=== PATIENT | female | born 1995 | race Caucasian/White ===

== ENCOUNTER 2018-11-12 06:49 | Inpatient (IN) | payer OTHER ==
[2018-11-12] MEDS ORDERED: Magnesium Sulfate OB PREMIX* 40 GM/1,000 ML BAG ONE (06:50)
[2018-11-12] MEDS ORDERED: Lactated Ringers 1000 ML Bag* 1,000 ML IV ONE (07:09)
--- NOTE | 2018-11-12 07:22 | HP ---
General Information - Reason for Visit Patient presented to the emergency room this am, after waking up to upper abdominal pain, mostly RUQ. She denies fever, chills, nausea, vomiting, diarrhea, constipation, urinary s/sx. In the emergency room she was noted to have BP readings in 190-170"s/100's, no headaches, visual changes noted by the patient. - General Information Maternal Age: 23 Grav: 1 Para: 0 SAB: 0 IEA: 0 Estimated Due Date: 01/28/19 Determined By: 18 week ultrasound Gestational Age in Weeks/Days: 29 0/7 weeks Maternal Blood Type and Rh: O Positive - Results this Serology/RPR Result: Non-Reactive Rubella Result: Non-Immune HBsAg Result: Negative HIV Result: Negative Past Medical History Delivery History: See Records Pertinent Past Medical History: See Records Past Medical History Comment: Obesity BMI 39.9 Asthma Depression/Anxiety Pertinent Past Surgical History: None Pertinent Family History: See Records - Diabetes, HTN - Antepartal Records Antepartal Records: Reviewed, Complicated by: - Hypertension, THC use early Review of Systems Constitutional: Comfortable CV Complaint: No Respiratory: Shortness of Breath: No Gastrointestinal: No Nausea/Vomiting, Normal Bowel Movement Genitourinary: No Dysuria, No Bleeding, No Leaking Fluid Musculoskeletal: Abdominal Pain - See HPI Neurological: No Headache, No Visual Changes Movement: Normal Exam Allergies/Adverse Reactions: Allergies No Known Allergies Allergy (Unverified 01/14/14 14:50) Lab Values - Entire Visit: Emergency Room CBC with elevated WBC, Comprehensive metabolic panel, LFT's wnl , Urine analysis negative. - Measurements Height: 5 ft 6 in Weight: 261 lb Body Mass Index (BMI): 42.1 Pre- Weight: 249 lb - Exam Breast: Breast Exam Deferred CVA: No CVA Tenderness Extremities: No Edema Heart: Normal Rhythm/Heart Sounds HEENT: No Significant Findings Lungs: Clear Bilaterally Rectal: Rectal Exam Deferred Reflexes: DTR 2+ Thyroid: No Thyromegaly - Abdominal Exam Abdomen Exam Comment: Abdomen- soft, gravid, upper abdominal tenderness right and mid abdomen, normal bowel sounds. - Ultrasound/Biophysical Profile Ultrasound Status: Radiology Department Full Exam - Pending Targeted Exam Findings See L&D Outpatient Visit Provider Note for Findings: N/A Membrane Status: Intact Bleeding/Discharge: None EFM Findings - External Monitor Findings Baseline Heart Rate: 140 External Monitor Findings: Accelerations Present Contractions: None Assessment/Plan - Assessment 23 y/o lady at 29 weeks EGA with severe hypertension and abdominal pain. - Obstetrical Risk Factors Obstetrical Risk Factors: Obesity, Severe Gestational Hypertension Risk Factors Comment: prematurity - Plan Plan: Mag Sulfate - anti-hypertensive Rx , evaluation with ultrasound, assess for Chronic HTM vs Pre-eclampsia. UDS, 24 hr collection pending.
[2018-11-12] MEDS ORDERED: Magnesium Sulf 4 GM/100 ML IV* 4,000 MG/100 ML BAG IVPB ONE (08:45)
[2018-11-12 09:07] LABS: Urine Benzodiazepine Screen None Detected (None Detect); Urine Opiates Screen None Detected (None Detect)
[2018-11-12] MEDS: Labetalol TAB* 200 MG PO SCH ×2 (09:10→20:58)
[2018-11-12] MEDS ORDERED: Acetaminophen TAB* 325 MG PO PRN (20:06)
[2018-11-13 04:54] VITALS: BP 147/79
[2018-11-13 08:08] LABS: Urine TP Concentration 5 mg/dL
[2018-11-13] MEDS: Labetalol TAB* 200 MG PO SCH (08:49)
[2018-11-14] MEDS ORDERED: Aspirin 81 mg CHEW TAB* 81 MG TAB.CHEW PO SCH (09:00)
--- NOTE | 2018-11-17 22:22 | DS ---
CC: Dr. Bingham * DISCHARGE SUMMARY: DATE OF ADMISSION: 11/12/18 DATE OF DISCHARGE: 11/13/18 PRINCIPAL DIAGNOSIS: Chronic hypertension. HISTORY: This is a 23-year-old who presented to the emergency room with upper abdominal pain, mostly in right upper quadrant. Initially, her blood pressures in the ER were 190 to 170 over 100s. No headache or visual changes were noted by the patient. The patient was brought down to Labor and Delivery and evaluated, started on magnesium for prevention of seizures related to preeclampsia and a 24-hour urine was collected. Initially on admission, her review of systems was really noncontributory other than abdominal pain. Heart was regular rhythm. HEENT without any findings. Lungs were clear to auscultation. DTRs were 2+. Abdomen was soft. Upper abdominal tenderness in the right and mid abdomen. Had normal bowel sounds. Ultrasound done in the Radiology Department showed a 30-week without any particular findings of note. She was admitted, observed, started on magnesium sulfate, and her labs were all within normal limits. Her total protein after 24 hours was 200, and given that her abdominal pain had resolved, she was discharged to home with followup with Dr. Bingham. [id number]/[facility] #: [id number] [facility] CENTERMarcello
== END 2018-11-13 10:22 | disposition home or self-care (01) | DRG 566 ==
LOC: MCHOBOUT 06:49 → MCHOB 06:54
PROVIDERS: ADMIT Obstetrics & Gynecology; ATTEND Obstetrics & Gynecology
DX: O13.3 Gestational [pregnancy-induced] hypertension without significant proteinuria, third trimester (principal); O99.213 Obesity complicating pregnancy, third trimester; J45.909 Unspecified asthma, uncomplicated; O99.343 Other mental disorders complicating pregnancy, third trimester; F41.9 Anxiety disorder, unspecified; F32.9 Major depressive disorder, single episode, unspecified; Z3A.30 30 weeks gestation of pregnancy
CPT/HCPCS: 76805; 80307; 84156; A9270-GY

== ENCOUNTER 2018-12-01 23:05 | Inpatient (IN) | payer OTHER ==
[2018-12-02] MEDS: Lactated Ringers 1000 ML Bag* 1,000 ML IV SCH ×2 (00:15→06:51)
[2018-12-02] MEDS ORDERED: Betamethasone INJ* 6 MG/ML 5 ML VIAL (30 MG) IM ONE ×2 (00:34)
[2018-12-02 00:40] LABS: Hematocrit 29 % (35-47); Mean Corpuscular HGB Conc 34 g/dL (31-36); Mean Corpuscular Hemoglobin 29 pg (27-31); Mean Corpuscular Volume 86 fL (80-97); Mean Platelet Volume 8.6 fL (7.4-10.4); Platelet Count 99 10^3/uL (150-450); Red Blood Count 3.39 10^6 /uL (3.70-4.87); Red Cell Distribution Width 16 % (10.5-15); White Blood Count 17.3 10^3/uL (3.5-10.8)
[2018-12-02 00:53] LABS: Albumin 3.3 g/dL (3.2-5.2); BUN/Creatinine Ratio 21.6 (8-20); Calcium 9.5 mg/dL (8.6-10.3); EGFR African American 118.7 (>60); EGFR Non-African American 98.1 (>60); Globulin 3.2 g/dL (2-4); Potassium 4.1 mmol/L (3.5-5.0); Total Bilirubin 0.4 mg/dL (0.2-1.0); Total Protein 6.5 g/dL (6.4-8.9)
[2018-12-02 00:55] LABS: Urine Benzodiazepine Screen None Detected (None Detect); Urine Opiates Screen None Detected (None Detect)
[2018-12-02 01:04] LABS: ABS Basophils 0.1 10^3/ul (0-0.2); ABS Eosinophils 0.3 10^3/ul (0-0.6); ABS Lymphocytes 1.7 10^3/ul (1.0-4.8); ABS Monocytes 0.9 10^3/ul (0-0.8); ABS Neutrophils 14.3 10^3/ul (1.5-7.7); ABS Nucleated RBC 0.1 10^3/ul; Lymphocyte % 9.8 %; Nucleated Red Blood Cells % 0.3
[2018-12-02] MEDS ORDERED: ceFOXitin 2 GM IVPREMIX* 2 GM/50 ML BAG ONE (07:01)
[2018-12-02] MEDS ORDERED: Sodium Citrate/Citric Acid* 15 ML UDC ONE (07:01)
[2018-12-02 07:11] LABS: ABS Basophils 0.1 10^3/ul (0-0.2); ABS Eosinophils 0.3 10^3/ul (0-0.6); ABS Lymphocytes 1.7 10^3/ul (1.0-4.8); ABS Monocytes 0.5 10^3/ul (0-0.8); ABS Neutrophils 19.6 10^3/ul (1.5-7.7); ABS Nucleated RBC 0.1 10^3/ul; Eosinophil % 1.3 %; Hematocrit 29 % (35-47); Hemoglobin 9.9 g/dL (12.0-16.0); Lymphocyte % 7.7 %; Mean Corpuscular HGB Conc 34 g/dL (31-36); Mean Corpuscular Hemoglobin 29 pg (27-31); Mean Corpuscular Volume 86 fL (80-97); Mean Platelet Volume 8.3 fL (7.4-10.4); Nucleated Red Blood Cells % 0.3; Platelet Count 96 10^3/uL (150-450); Red Blood Count 3.38 10^6 /uL (3.70-4.87); Red Cell Distribution Width 16 % (10.5-15)
[2018-12-02] MEDS ORDERED: Lactated Ringers 1000 ML Bag* 1,000 ML IV ONE (07:12)
[2018-12-02] MEDS ORDERED: ceFOXitin 2 GM IVPREMIX* 2 GM/50 ML BAG IVPB ONE (07:12)
[2018-12-02] MEDS ORDERED: Magnesium Sulf 4 GM/100 ML IV* 4,000 MG/100 ML BAG IVPB ONE (07:12)
[2018-12-02] MEDS ORDERED: Buffered Lidocaine 1% SYRIN* 1 ML/SYRINGE INTRADERM ONE (07:12)
[2018-12-02] MEDS ORDERED: Sodium Citrate/Citric Acid* 15 ML UDC PO ONE (07:12)
[2018-12-02] MEDS ORDERED: fentaNYL* 50 MCG/ML 2 ML VIAL (100 MCG VIAL) ONE (07:18)
[2018-12-02] MEDS ORDERED: Midazolam* 1 MG/ML 5 ML VIAL (5 MG) ONE (07:18)
[2018-12-02] MEDS ORDERED: Morphine PF AMP (0.5MG/ML)* 5 MG/10 ML AMP ONE (07:18)
[2018-12-02] MEDS ORDERED: Magnesium Sulfate OB PREMIX* 40 GM/1,000 ML BAG ONE (07:25)
--- NOTE | 2018-12-02 07:25 | HP ---
General Information - Reason for Visit preeclampsia / iugr. - General Information Maternal Age: 23 Grav: 1 Para: 0 SAB: 0 IEA: 0 Estimated Due Date: 01/26/19 Determined By: Early Ultrasound Maternal Blood Type and Rh: O Positive - Results this Serology/RPR Result: Non-Reactive Rubella Result: Non-Immune HBsAg Result: Negative HIV Result: Negative Past Medical History Delivery History: See Records Pertinent Past Medical History: See Records Pertinent Past Surgical History: See Records Pertinent Family History: Non-Contributory - Antepartal Records Antepartal Records: Reviewed, Complicated by: - chronic hypertension Review of Systems Constitutional: Comfortable CV Complaint: No Respiratory: Shortness of Breath: No Gastrointestinal: Nausea, Vomiting Genitourinary: No Bleeding, No Leaking Fluid Musculoskeletal: Abdominal Pain Neurological: No Headache, No Visual Changes Movement: Decreased Exam Allergies/Adverse Reactions: Allergies Latex, Natural Rubber Allergy (Verified 12/01/18 23:36) Blisters Lab Values - Entire Visit: Laboratory Tests 12/01/18 12/02/18 12/02/18 23:30 00:15 00:15 WBC 17.3 H RBC 3.39 L Hgb 10.0 L Hct 29 L MCV 86 MCH 29 MCHC 34 RDW 16 H Plt Count 99 L MPV 8.6 Neut % (Auto) 83.0 Lymph % (Auto) 9.8 Iron % (Auto) 4.9 Eos % (Auto) 2.0 Baso % (Auto) 0.3 Absolute Neuts (auto) 14.3 H Absolute Lymphs (auto) 1.7 Absolute Monos (auto) 0.9 H Absolute Eos (auto) 0.3 Absolute Basos (auto) 0.1 Absolute Nucleated RBC 0.1 Nucleated RBC % 0.3 Sodium 134 L Potassium 4.1 Chloride 102 Carbon Dioxide 24 Anion Gap 8 BUN 16 Creatinine 0.74 Est GFR ( Amer) 118.7 Est GFR (Non-Af Amer) 98.1 BUN/Creatinine Ratio 21.6 H Glucose 84 Calcium 9.5 Total Bilirubin 0.40 AST 41 H ALT 49 Alkaline Phosphatase 165 H Total Protein 6.5 Albumin 3.3 Globulin 3.2 Albumin/Globulin Ratio 1.0 Urine Opiates Screen None detected Ur Barbiturates Screen None detected Ur Phencyclidine Scrn None detected Ur Amphetamines Screen None detected U Benzodiazepines Scrn None detected Urine Cocaine Screen None detected U Cannabinoids Screen Presumptive positive A Blood Type Antibody Screen 12/02/18 12/02/18 00:15 06:55 WBC 22.0 H RBC 3.38 L Hgb 9.9 L Hct 29 L MCV 86 MCH 29 MCHC 34 RDW 16 H Plt Count 96 L MPV 8.3 Neut % (Auto) 88.8 Lymph % (Auto) 7.7 Iron % (Auto) 2.0 Eos % (Auto) 1.3 Baso % (Auto) 0.2 Absolute Neuts (auto) 19.6 H Absolute Lymphs (auto) 1.7 Absolute Monos (auto) 0.5 Absolute Eos (auto) 0.3 Absolute Basos (auto) 0.1 Absolute Nucleated RBC 0.1 Nucleated RBC % 0.3 Sodium Potassium Chloride Carbon Dioxide Anion Gap BUN Creatinine Est GFR ( Amer) Est GFR (Non-Af Amer) BUN/Creatinine Ratio Glucose Calcium Total Bilirubin AST ALT Alkaline Phosphatase Total Protein Albumin Globulin Albumin/Globulin Ratio Urine Opiates Screen Ur Barbiturates Screen Ur Phencyclidine Scrn Ur Amphetamines Screen U Benzodiazepines Scrn Urine Cocaine Screen U Cannabinoids Screen Blood Type O Positive Antibody Screen Negative - Measurements Height: 5 ft 6 in Weight: 272 lb Weight in lbs: [id number] Body Mass Index (BMI): 43.9 Pre- Weight: 245 lb 0.017 oz Weight Gained This : 26.998 lbs and 0.015 ozs - Exam Breast: Breast Exam Deferred Extremities: Edema Heart: Normal Rhythm/Heart Sounds HEENT: No Significant Findings Lungs: Clear Bilaterally Rectal: Rectal Exam Deferred Reflexes: DTR 2+ Targeted Exam Findings See L&D Outpatient Visit Provider Note for Findings: Yes Presenting Part: Breech Membrane Status: Intact EFM Findings - External Monitor Findings Baseline Heart Rate: 140 External Monitor Findings: Variable or Late Deceleration Pattern Present Contractions: None Assessment/Plan - Assessment 23 yo at 32 weeks with iugr and chronic hypertension now with thrombocytopenia and elevated liver enzymes.baby with variable deceleration consistent with placental insufficiency. Plan section risks benefits alternatives and indications dicussed questions answered
[2018-12-02 07:27] LABS: Albumin 3.3 g/dL (3.2-5.2); BUN/Creatinine Ratio 23.4 (8-20); Calcium 9.3 mg/dL (8.6-10.3); EGFR African American 140.4 (>60); Globulin 3.3 g/dL (2-4); Potassium 4.4 mmol/L (3.5-5.0); Total Bilirubin 0.4 mg/dL (0.2-1.0); Total Protein 6.6 g/dL (6.4-8.9)
[2018-12-02] MEDS ORDERED: Lactated Ringers 1000 ML Bag* 1,000 ML IV SCH ×2 (08:00→09:00)
[2018-12-02] MEDS ORDERED: Naloxone* 0.4 MG/ML 1 ML VIAL IV PRN ×2 (08:20→08:23)
[2018-12-02] MEDS ORDERED: oxyCODONE/Acetamin 5/325 MG* TAB PO PRN ×3 (08:20→23:30)
[2018-12-02] MEDS ORDERED: Nalbuphine* 10 MG/ML 1 ML VIAL IV PRN (08:20)
[2018-12-02] MEDS ORDERED: PROCHLORPERAZINE INJ 5 MG/ML 2 ML VIAL IV PRN (08:20)
[2018-12-02] MEDS ORDERED: DiMENhydriNATE IV* 50 MG/ML VIAL IV PUSH PRN (08:20)
[2018-12-02] MEDS ORDERED: Naloxone* 2 MG in NS 0.9% 250 ML* 250 ML IV PRN (08:20)
[2018-12-02] MEDS ORDERED: Ondansetron INJ* 2 MG/ML VIAL IV PRN (08:20)
[2018-12-02] MEDS ORDERED: fentaNYL* 50 MCG/ML 2 ML VIAL (100 MCG VIAL) IV PRN (08:23)
[2018-12-02] MEDS ORDERED: Scopolamine 1.5 mg* PATCH ONE (08:40)
[2018-12-02] MEDS ORDERED: Phenylephrine 10 MG/ML VIAL* 1 ML VIAL ONE (08:40)
[2018-12-02] MEDS ORDERED: Ketorolac INJ* 30 MG/ML 1 ML VIAL ONE (08:40)
[2018-12-02] MEDS ORDERED: Ondansetron INJ* 2 MG/ML VIAL ONE (08:40)
[2018-12-02] MEDS ORDERED: OXYTOCIN* 10 UNITS/ML 1 ML VIAL ONE (08:40)
[2018-12-02] MEDS ORDERED: Dexamethasone IV* 4 MG/ML 1 ML (4 MG) ONE (08:40)
[2018-12-02] MEDS ORDERED: Dibucaine 1% 28.35 GM TUBE PR PRN (08:53)
[2018-12-02] MEDS ORDERED: Acetaminophen TAB* 325 MG PO PRN (08:53)
[2018-12-02] MEDS ORDERED: Witch Hazel PAD* JAR TOPICAL PRN (08:53)
[2018-12-02] MEDS ORDERED: Measles, Mumps,Rubella VACC* 0.5 ML/VIAL SUBCUT ONE (08:53)
[2018-12-02] MEDS ORDERED: Glycerin ADULT SUPP PR PRN (08:53)
[2018-12-02] MEDS ORDERED: Magnesium Sulfate OB PREMIX* 40 GM/1,000 ML BAG IVPB SCH (09:00)
[2018-12-02] MEDS ORDERED: Oxytocin in LR* 20 UNITS/1,000 ML BAG IVPB SCH (09:00)
--- NOTE | 2018-12-02 11:05 | OP ---
AMENDED REPORT NOW INCLUDES DATE OF OPERATION - ESIGNED BEFORE ADJUSTMENT * DATE OF OPERATION: 12/02/18 - ROOM #113 DATE OF : 89 SURGEON: Cameron Burkett MD PASSENGER RELATIONS REPRESENTATIVE: Ney Bingham MD ANESTHESIA: Spinal. PRE-OP DIAGNOSES: HELLP syndrome, Breech presentation, and nonreassuring testing. POST-OP DIAGNOSES: HELLP syndrome, Breech presentation, and nonreassuring testing. OPERATIVE PROCEDURE: Low-transverse section. ESTIMATED BLOOD LOSS: 600 cc. COMPLICATIONS: None. FINDINGS: Include a viable female, weight was 3 pounds 3 ounces. Apgars were 8 and 9. Normal appearing uterus, fallopian tubes, and ovaries. DESCRIPTION OF PROCEDURE: The patient identified, procedure identified as a low - transverse section. The patient was taken to the operating room, prepped and draped in the usual fashion in the left lateral recumbent position under spinal anesthesia. A Pfannenstiel incision was made in the abdomen and carried down through fat, fascia, and peritoneum. A transverse incision was made in the lower uterine segment, extended laterally using blunt dissection. The above was delivered easily in the breech manner. Cord was doubly clamped and cut and the infant was handed to the awaiting trader. A segment of cord was obtained for pH and cord blood was obtained. Placenta delivered spontaneously. Uterus was wiped out with a lap sponge. The uterine incision was then closed using 0-Polysorb in a running fashion. Second layer was used to imbricate the first layer. The Javier retractor was removed. Good hemostasis was verified in the peritoneal cavity. A Fish was placed and the peritoneum was closed using 3-0 Polysorb in a running fashion. The Fish was removed prior to complete closure. Good hemostasis in the subrectus layer. The fascia was closed using 0-Polysorb in a running fashion. Good hemostasis was achieved in the subcu. Copious irrigation was utilized and suctioned out. The space was closed using 3-0 Polysorb in a simple fashion. Good hemostasis was achieved in the subcuticular layer and the skin was closed using 4-0 Monocryl in a subcuticular fashion. Steri-Strips and Mastisol were used to reinforce this incision. All sponge and instrument counts were correct and the patient returned to the recovery room in stable condition. [id number]/[facility] #: [id number] MTDD
[2018-12-02] MEDS: Labetalol TAB* 200 MG PO SCH ×2 (11:15→20:52)
[2018-12-02] MEDS: Simethicone TAB* 80 MG TAB.CHEW PO SCH ×3 (12:13→20:51)
[2018-12-02] MEDS: Docusate CAP* 100 MG PO SCH ×3 (16:22→20:52)
[2018-12-02] MEDS: Ketorolac INJ* 30 MG/ML 1 ML VIAL IV PRN ×2 (16:22→23:39)
[2018-12-02] MEDS ORDERED: Zolpidem TAB* 5 MG PO PRN (23:30)
[2018-12-03 06:31] LABS: ABS Lymphocytes 1.7 10^3/ul (1.0-4.8); ABS Neutrophils 19.8 10^3/ul (1.5-7.7); ABS Nucleated RBC 0.1 10^3/ul; Eosinophil % 0.1 %; Hematocrit 25 % (35-47); Hemoglobin 8.4 g/dL (12.0-16.0); Lymphocyte % 7.4 %; Mean Corpuscular HGB Conc 34 g/dL (31-36); Mean Corpuscular Hemoglobin 30 pg (27-31); Mean Corpuscular Volume 87 fL (80-97); Mean Platelet Volume 8.4 fL (7.4-10.4); Nucleated Red Blood Cells % 0.2; Platelet Count 144 10^3/uL (150-450); Red Blood Count 2.83 10^6 /uL (3.70-4.87); Red Cell Distribution Width 16 % (10.5-15); White Blood Count 22.4 10^3/uL (3.5-10.8)
[2018-12-03] MEDS: Ferrous Gluconate TAB* 324 MG TAB PO SCH ×2 (08:43→20:21)
[2018-12-03] MEDS: Simethicone TAB* 80 MG TAB.CHEW PO SCH ×4 (08:43→20:22)
[2018-12-03] MEDS: Docusate CAP* 100 MG PO SCH ×3 (08:43→20:21)
[2018-12-03] MEDS: Labetalol TAB* 200 MG PO SCH ×2 (08:43→20:22)
[2018-12-03] MEDS: Ibuprofen TAB* 600 MG PO PRN ×3 (08:46→22:07)
[2018-12-04] MEDS: Ibuprofen TAB* 600 MG PO PRN ×4 (04:20→22:55)
[2018-12-04] MEDS: Docusate CAP* 100 MG PO SCH ×3 (09:31→21:14)
[2018-12-04] MEDS: Ferrous Gluconate TAB* 324 MG TAB PO SCH ×2 (09:31→21:14)
[2018-12-04] MEDS: Labetalol TAB* 100 MG PO SCH ×2 (09:32→21:14)
[2018-12-04] MEDS: Simethicone TAB* 80 MG TAB.CHEW PO SCH ×3 (09:32→21:14)
[2018-12-05] MEDS: Docusate CAP* 100 MG PO SCH (08:14)
[2018-12-05] MEDS: Ibuprofen TAB* 600 MG PO PRN (08:14)
[2018-12-05] MEDS: Labetalol TAB* 100 MG PO SCH (08:15)
[2018-12-05] MEDS: Simethicone TAB* 80 MG TAB.CHEW PO SCH ×2 (08:15→09:16)
[2018-12-05] MEDS: Ferrous Gluconate TAB* 324 MG TAB PO SCH (08:15)
[2018-12-05 08:18] VITALS: BP 145/85
[2018-12-05] MEDS ORDERED: Scopolamine PATCH Remove* 1 NOTE MISC PATCH OFF PRN (08:21)
[2018-12-05] MEDS ORDERED: Measles, Mumps,Rubella VACC* 0.5 ML/VIAL ONE (11:59)
== END 2018-12-05 13:30 | disposition home or self-care (01) | DRG 540 ==
LOC: MCHOBOUT 23:05 → MCHOB 12-02 06:53
PROVIDERS: ADMIT Obstetrics & Gynecology; ATTEND Obstetrics & Gynecology
PROC: 4A1HXCZ Monitoring of Products of Conception, Cardiac Rate, External Approach (ICD-10-PCS; 2018-12-02)
PROC: 10D00Z1 Extraction of Products of Conception, Low, Open Approach (ICD-10-PCS; principal; 2018-12-02 07:45)
DX: O14.24 HELLP syndrome, complicating childbirth (principal); O76 Abnormality in fetal heart rate and rhythm complicating labor and delivery; O36.5930 Maternal care for other known or suspected poor fetal growth, third trimester, not applicable or unspecified; O32.1XX0 Maternal care for breech presentation, not applicable or unspecified; O99.214 Obesity complicating childbirth; O69.81X0 Labor and delivery complicated by cord around neck, without compression, not applicable or unspecified; Z91.040 Latex allergy status; Z3A.32 32 weeks gestation of pregnancy; Z37.0 Single live birth; O90.81 Anemia of the puerperium
CPT/HCPCS: 36415; 80053; 80307; 85025; 86850; 86900; 86901; 88307; 90707; A9270-GY; J0694; J0702; J1100; J1885; J2250; J2405; J2590; J3010; J3475

== ENCOUNTER 2022-10-10 05:31 | Inpatient (IN) ==
[2022-10-10 06:42] LABS: Hematocrit 39 % (35-47); Hemoglobin 13.1 g/dL (12.0-16.0); Mean Corpuscular HGB Conc 34 g/dL (31-36); Mean Corpuscular Hemoglobin 30 pg (27-31); Mean Corpuscular Volume 88 fL (80-97); Mean Platelet Volume 8.1 fL (7.4-10.4); Platelet Count 213 10^3/uL (150-450); Red Blood Count 4.43 10^6 /uL (3.70-4.87); Red Cell Distribution Width 14 % (10-15); White Blood Count 11.7 10^3/uL (3.5-10.8)
[2022-10-10] MEDS ORDERED: Buffered Lidocaine 1% SYRIN 1 ml INTRADERM ONE (06:48)
[2022-10-10] MEDS ORDERED: Sodium Citrate/Citric Acid LIQ 15 ML UDC PO ONE (06:48)
[2022-10-10] MEDS ORDERED: Lactated Ringers 1000 ml BAG 1,000 ML IV SCH ×3 (07:00→10:00)
[2022-10-10] MEDS ORDERED: ceFOXitin 2 GM IVPREMIX 2 GM/50 ML BAG ONE (07:05)
[2022-10-10] MEDS ORDERED: Scopolamine 1 mg/72hr PATCH ONE (07:29)
[2022-10-10] MEDS ORDERED: Morphine PF AMP (0.5MG/ML) 5 MG/10 ML AMP ONE (07:29)
[2022-10-10] MEDS ORDERED: Oxytocin 10 UNITS/ML 1 ML VIAL ONE (07:29)
[2022-10-10] MEDS ORDERED: Phenylephrine 40 mcg/mL 10mL (400mcg) SYRINGE ONE (07:29)
[2022-10-10] MEDS ORDERED: Acetaminophen IV 1 GM/100 ML BAG IV ONE (07:32)
[2022-10-10] MEDS ORDERED: Ondansetron 4 mg VIAL 2 MG/ML 2 ml VIAL IV PRN ×2 (08:00→08:43)
[2022-10-10] MEDS ORDERED: fentaNYL 100 mcg/2 ml 50 MCG/ML VIAL IV PRN (08:00)
[2022-10-10] MEDS ORDERED: Naloxone 0.4 mg VIAL 0.4 mg/ml 1 ml VIAL IV PRN (08:00)
[2022-10-10] MEDS ORDERED: Ondansetron 4 mg VIAL 2 MG/ML 2 ml VIAL ONE (08:23)
[2022-10-10] MEDS ORDERED: Acetaminophen IV 1 GM/100ML 1,000 MG/100 ML BAG IV PRN (08:43)
[2022-10-10] MEDS ORDERED: Naloxone 0.4 mg VIAL 0.4 mg/ml 1 ml VIAL IV PUSH PRN (08:43)
[2022-10-10] MEDS ORDERED: Metoclopramide 5 MG/ML VIAL (10 mg) IV PRN (08:43)
[2022-10-10] MEDS ORDERED: Glycerin ADULT 2.4 gm SUPP PR PRN (09:20)
[2022-10-10] MEDS ORDERED: Dibucaine 1% OINT 28.35 GM TUBE PR PRN (09:20)
[2022-10-10] MEDS ORDERED: Measles, Mumps,Rubella VACC 0.5 ML/VIAL SUBCUT ONE (09:20)
[2022-10-10] MEDS ORDERED: Witch Hazel PAD JAR TOPICAL PRN (09:20)
[2022-10-10] MEDS ORDERED: Oxytocin in LR 20,000 MILLI.UNIT/1,000 ML BAG IV ONE (09:22)
[2022-10-10] MEDS ORDERED: Oxytocin in LR 20,000 MILLI.UNIT/1,000 ML BAG IV SCH (09:30)
[2022-10-10 10:04] LABS: Urine Appearance Clear; Urine Bilirubin Negative (Negative); Urine Blood Negative (Negative); Urine Color Straw; Urine Glucose Negative (Negative); Urine Ketones Trace (Negative); Urine Nitrite Negative (Negative); Urine Protein Negative (Negative); Urine Specific Gravity 1.004 (1.002-1.030); Urine Urobilinogen Negative (Negative)
[2022-10-11 05:54] LABS: ABS Eosinophils 0.1 10^3/ul (0-0.6); ABS Neutrophils 7.6 10^3/ul (1.5-7.7); Eosinophil % 0.8 %; Hematocrit 32 % (35-47); Hemoglobin 11.1 g/dL (12.0-16.0); Lymphocyte % 18.8 %; Mean Corpuscular HGB Conc 34 g/dL (31-36); Mean Corpuscular Hemoglobin 29 pg (27-31); Mean Corpuscular Volume 86 fL (80-97); Mean Platelet Volume 7.5 fL (7.4-10.4); Platelet Count 193 10^3/uL (150-450); Red Blood Count 3.78 10^6 /uL (3.70-4.87); Red Cell Distribution Width 14 % (10-15); White Blood Count 10.6 10^3/uL (3.5-10.8)
[2022-10-12 07:40] VITALS: BP 140/71
== END 2022-10-12 11:30 | disposition home or self-care (01) | DRG 540 ==
LOC: MCHOB 05:31
PROVIDERS: ADMIT Obstetrics & Gynecology; ATTEND Obstetrics & Gynecology